=== PATIENT | male | born 1950 | race Caucasian/White ===

== ENCOUNTER 2018-07-11 20:59 | Emergency (ER) | payer MEDICARE, OTHER ==
[~2018-07-11] VITALS: Ht 170.2 cm; Wt 72.6 kg
[~2018-07-11 20:59] MED LIST: ASCO500T3 PO; ASPI-612 PO; ATOR20TA PO; CETI10CA PO; CHOL100013 PO; DUTA0.5C PO; ESOM40CA PO; FERR325T14 PO; FLAX1000 PO; LOSA-73 PO; WARF-78 PO; [UNRECOGNIZED DRUG - OTHER] PO
[2018-07-11 21:49] LABS: BASO % 1 % (0-3); EOS # 0.1 x10^3/uL (0.0-0.7); EOS % 1 % (0-3); HEMATOCRIT 41.1 % (39.0-53.0); HEMOGLOBIN 14.1 g/dL (13.0-17.5); LYMPH # 2.2 x10^3/uL (1.0-4.8); LYMPH % 35 % (24-48); MEAN CORPUSCULAR HEMOGLOBIN 31 pg (25-35); MEAN CORPUSCULAR HGB CONC 34 g/dL (31-37); MEAN CORPUSCULAR VOLUME 91 fL (79-100); MONO # 0.4 x10^3/uL (0.0-1.1); MONO % 7 % (0-9); NEUT # 3.5 x10^3uL (1.8-7.7); NEUT % 56 % (31-73); PLATELET COUNT 153 x10^3/uL (140-400); RED CELL DISTRIBUTION WIDTH 12.3 % (11.5-14.5); WHITE BLOOD COUNT 6.3 x10^3/uL (4.0-11.0)
[2018-07-11 21:59] LABS: CALCIUM 9.3 mg/dL (8.5-10.1); POTASSIUM 3.7 mmol/L (3.5-5.1)
[2018-07-11 22:05] LABS: ALBUMIN 3.7 g/dL (3.4-5.0); ALBUMIN/GLOBULIN RATIO 1.2 (1.0-1.7); TOTAL BILIRUBIN 0.7 mg/dL (0.2-1.0); TOTAL PROTEIN 6.9 g/dL (6.4-8.2)
[2018-07-11 22:39] VITALS: BP 131/79
--- NOTE | 2018-07-11 22:39 | PHYS DOC ---
Past Medical History Past Medical History: Hypertension, Other Additional Past Medical Histor: enlarged prostate (DAVID LYNCH APRN) Past Surgical History: Knee Replacement, Tonsillectomy, Other Additional Past Surgical Histo: back surgery, nose surgery (DAVID LYNCH APRN) Alcohol Use: None Drug Use: None (DAVID LYNCH APRN) Adult General Chief Complaint Chief Complaint: CHEST PAIN HPI HPI 67-year-old male presents to ER via POV for complaints of intermittent left- sided chest pains which started around noon while working in his yard. Pt reports episode was brief- denying radiation of pain, shortness of air, or nausea and vomiting. Patient states he had a couple more episodes of brief intermittent chest pain earlier and is currently denying any pain. She reports he took 81 mg aspirin today. Patient states he has had a recent stress tests uncertain of date which was normal limits. Patient has history of hypertension and kidney disease. Patient denies smoking or alcohol history. Patient denies any recent travel. Patient denies any recent illness. Patient states his father had [place] in his 70s but he had other medical issues putting him at higher risk. Patient reports he was seen [place] and TINs unit was used with higher setting- uncertain if that may have caused some increased muscle cramps. He denies any recent trauma/falls. (DAVID LYNCH APRN) Review of Systems Review of Systems Constitutional: Denies fever or chills [] Eyes: Denies change in visual acuity, redness, or eye pain [] HENT: Denies nasal congestion or sore throat [] Respiratory: Denies cough or shortness of breath [] Cardiovascular: Reports intermittent brief episodes of lt side CP- denies pain currently GI: Denies abdominal pain, nausea, vomiting, bloody stools or diarrhea [] : Denies dysuria or hematuria [] Musculoskeletal: Denies joint pain. Denies chronic back pain- denies acute changes. Integument: Denies rash, swelling or skin lesions [] Neurologic: Denies headache, focal weakness or sensory changes. Denies dizziness All other systems were reviewed and found to be within normal limits, except as documented in this note. (DAVID LYNCH APRN) Allergies Allergies Allergies Coded Allergies Type Severity Reaction Last Updated Verified amoxicillin Allergy Intermediate Rash 07/11/18 Yes amoxicillin trihydrate Allergy Intermediate Rash 07/11/18 Yes morphine Allergy Intermediate Itching 02/01/13 Yes potassium clavulanate Allergy Intermediate Rash 07/11/18 Yes (ANDREA MICHAEL MD) Physical Exam Physical Exam Constitutional: Well developed, well nourished, no acute distress, non-toxic appearance. [] HENT: Normocephalic, atraumatic, oropharynx moist, nose normal. [] Eyes: Pupils equal, conjunctiva normal, no discharge. [] Neck: Normal range of motion, no tenderness, supple, no stridor. [] Cardiovascular: Heart rate regular rhythm, no murmur [] Lungs & Thorax: Bilateral breath sounds clear to auscultation- resp. equal/nonlabored. No chest wall tenderness Abdomen: Bowel sounds normal, soft, no tenderness, no masses, no pulsatile masses. [] Skin: Warm, dry, no erythema, no rash. [] Back: No tenderness, no CVA tenderness. [] Extremities: No tenderness, no cyanosis, no clubbing, ROM intact, no edema. [] Neurologic: Alert and oriented X 3, normal motor function, normal sensory function, no focal deficits noted. [] Psychologic: Affect normal, judgement normal, mood normal. [] (REFFITT,DAVID Vergara APRN) Current Patient Data Vital Signs Vital Signs Date Time Temp Pulse Resp B/P (MAP) Pulse Ox O2 Delivery O2 Flow Rate FiO2 07/11/18 22:39 66 18 131/79 (96) 95 Room Air 07/11/18 21:00 98.3 98.3 (ANDREA MICHAEL MD) Lab Values Laboratory Tests Test 07/11/18 21:10 White Blood Count 6.3 x10^3/uL (4.0-11.0) Red Blood Count 4.50 x10^6/uL (4.30-5.70) Hemoglobin 14.1 g/dL (13.0-17.5) Hematocrit 41.1 % (39.0-53.0) Mean Corpuscular Volume 91 fL (79-100) Mean Corpuscular Hemoglobin 31 pg (25-35) Mean Corpuscular Hemoglobin Concent 34 g/dL (31-37) Red Cell Distribution Width 12.3 % (11.5-14.5) Platelet Count 153 x10^3/uL (140-400) Neutrophils (%) (Auto) 56 % (31-73) Lymphocytes (%) (Auto) 35 % (24-48) Monocytes (%) (Auto) 7 % (0-9) Eosinophils (%) (Auto) 1 % (0-3) Basophils (%) (Auto) 1 % (0-3) Neutrophils # (Auto) 3.5 x10^3uL (1.8-7.7) Lymphocytes # (Auto) 2.2 x10^3/uL (1.0-4.8) Monocytes # (Auto) 0.4 x10^3/uL (0.0-1.1) Eosinophils # (Auto) 0.1 x10^3/uL (0.0-0.7) Basophils # (Auto) 0.0 x10^3/uL (0.0-0.2) Sodium Level 145 mmol/L (136-145) Potassium Level 3.7 mmol/L (3.5-5.1) Chloride Level 106 mmol/L (98-107) Carbon Dioxide Level 32 mmol/L (21-32) Anion Gap 7 (6-14) Blood Urea Nitrogen 17 mg/dL (8-26) Creatinine 1.0 mg/dL (0.7-1.3) Estimated GFR (Cockcroft-Gault) 75.0 BUN/Creatinine Ratio 17 (6-20) Glucose Level 109 mg/dL (70-99) H Calcium Level 9.3 mg/dL (8.5-10.1) Magnesium Level 2.0 mg/dL (1.8-2.4) Total Bilirubin 0.7 mg/dL (0.2-1.0) Aspartate Amino Transferase (AST) 26 U/L (15-37) Alanine Aminotransferase (ALT) 40 U/L (16-63) Alkaline Phosphatase 68 U/L (46-116) Troponin I Quantitative < 0.017 ng/mL (0.000-0.055) Total Protein 6.9 g/dL (6.4-8.2) Albumin 3.7 g/dL (3.4-5.0) Albumin/Globulin Ratio 1.2 (1.0-1.7) Laboratory Tests 07/11/18 21:10 Laboratory Tests 07/11/18 21:10 (ANDREA MICHAEL MD) EKG EKG EKG obtained 07/11/18 at [address] Michael Sinus rhythm Rate 70 No STEMI (DAVID LYNCH APRN) Radiology/Procedures Radiology/Procedures PROCEDURE: CHEST PA & LATERAL PA and lateral chest radiographs 07/11/2018 CLINICAL HISTORY: Intermittent left-sided chest pain. PA and lateral digital radiographs of the chest were obtained. Comparison study is dated 01/08/2013. The cardiac silhouette is normal in size. The thoracic aorta is mildly tortuous. No acute pulmonary infiltrate is seen. No pleural effusion or pneumothorax is noted. Degenerative changes are seen involving the thoracic spine. IMPRESSION: No acute abnormality is seen. Electronically signed by: Solomon Palmer MD (07/11/2018 11:36 PM) [facility] DICTATED and SIGNED BY: SOLOMON PALMER MD DATE: 07/11/18 2331 (DAVID LYNCH APRN) Course & Med Decision Making Course & Med Decision Making Pertinent Labs and Imaging studies reviewed. (See chart for details) 2024: Reevaluation of the patient and he is denying having any chest pain while in the ER. Test results were discussed. EKG with no acute ST elevation or STEMI and troponin was negative. Chest x-ray was negative for acute findings. Admission was offered for further monitoring with HEART score 3- with pt having no pain and with NL tests he is preferring to be discharge with plans to f/u with PCP for re-eval. and further care if sxs persist. Pt had reported NL stress test recently and that pain had started at noon with 2-3 brief episodes of intermittent CP earlier in the day. Pt has denied any CP/SOA or complaints while in the ER. Education provided on signs and symptoms to return to ER. Discharge instructions were discussed. Patient to follow-up with primary care physician if symptoms persist or with any concerns. (DAVID LYNCH APRN) Course & Med Decision Making Staff Physician Addendum: I was working in the ER during the course of this patient's visit. I was available for consultation as needed, but I was not directly involved in the care of this patient. (ANDREA MICHAEL MD) Dragon Disclaimer Dragon Disclaimer This electronic medical record was generated, in whole or in part, using a voice recognition dictation system. (DAVID LYNCH APRN) Departure Departure Impression: Primary Impression: Chest pain Disposition: HOME, SELF-CARE Condition: STABLE Referrals: UNKNOWN PCP NAME (PCP) Patient Instructions: Chest Pain (Nonspecific) Additional Instructions: Drink plenty of fluids. In symptoms persist follow-up with your primary care physician for reevaluation. With any concerns or worsening symptoms return to the emergency department. DAVID LYNCH APRN July 11, 2018 22:39 ANDREA MICHAEL MD Aug 06, 2018 10:13
--- NOTE | 2018-07-11 23:39 | RAD ---
PA and lateral chest radiographs 07/11/2018 CLINICAL HISTORY: Intermittent left-sided chest pain. PA and lateral digital radiographs of the chest were obtained. Comparison study is dated 01/08/2013. The cardiac silhouette is normal in size. The thoracic aorta is mildly tortuous. No acute pulmonary infiltrate is seen. No pleural effusion or pneumothorax is noted. Degenerative changes are seen involving the thoracic spine. IMPRESSION: No acute abnormality is seen. Electronically signed by: Solomon Palmer MD (07/11/2018 11:36 PM) [facility]
--- NOTE | 2018-07-12 06:32 | EKG ---
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
== END 2018-07-11 22:53 | disposition home or self-care (01) ==
LOC: ER 20:59
DX: R07.89 Other chest pain (principal); I10 Essential (primary) hypertension; Z88.1 Allergy status to other antibiotic agents; Z88.5 Allergy status to narcotic agent; Z88.8 Allergy status to other drugs, medicaments and biological substances
CPT/HCPCS: 36415; 71046; 80053; 83735; 84484; 85025; 93005; 99285-25

== ENCOUNTER → 2018-12-21 | Day surgery (SDC) | payer MEDICARE, OTHER ==
[~2018-12-21] MED LIST changes: +AMLO5TAB10 PO; +ASPI-630 PO; +IV RINGERS,LACTATED 1000ML 1,000 ML IV ONE; +LEVO50TA5 PO; +MAGN400C PO; +PROPOFOL 20 ML IV ONE; +TURM500C4 PO
[2018-12-21 14:08] VITALS: BP 125/84
--- NOTE | 2018-12-22 14:06 | PATHOLOGY ---
[facility] Accession Number: [id number] . 01 Material submitted: . colon - SIGMOID COLON POLYP. Modifiers: sigmoid . 01 Clinical history: . Rectal bleed, abdominal pain . 02 Diagnosis: Colon biopsy, sigmoid colon polyp: - Tubular adenoma. (JPM:grisel; 12/22/2018) QMS 12/22/2018 0841 Local . 02 Comment: There is no high grade dysplasia or evidence of malignancy. . 02 Electronically signed: . Chris Gifford MD, Pathologist NPI- [id number] . 01 Gross description: . Received in formalin labeled "Dilip, Juan, sigmoid colon polyp," is a 0.7 x 0.6 x 0.5 cm polypoid piece of archibald soft tissue. The margin is inked and the tissue is sectioned perpendicular to the margin and submitted entirely in cassette A1. (TSD; 12/21/2018) TOB/TOB 12/21/2018 1755 Local . 02 Pathologist provided ICD-10: D12.5 . 02 CPT . 019870 Specimen Comment: A courtesy copy of this report has been sent to Specimen Comment: [phone]. Specimen Comment: Report sent to Performed at: 01 [facility] [address], [place], [place] [id number] MD Michele Phelps MD Phone: [phone] Performed at: 02 [facility] [address] [place], [place] [id number] MD Chris Gifford MD Phone: [phone]
== END ==
LOC: ENDOS 11:31
PROVIDERS: ATTEND Internal Medicine Gastroenterology
DX: K92.1 Melena (principal); K29.50 Unspecified chronic gastritis without bleeding; D12.5 Benign neoplasm of sigmoid colon; K21.9 Gastro-esophageal reflux disease without esophagitis; K64.0 First degree hemorrhoids; I10 Essential (primary) hypertension; E78.00 Pure hypercholesterolemia, unspecified; F15.90 Other stimulant use, unspecified, uncomplicated; Z88.0 Allergy status to penicillin; Z88.8 Allergy status to other drugs, medicaments and biological substances; Z87.39 Personal history of other diseases of the musculoskeletal system and connective tissue; Z85.828 Personal history of other malignant neoplasm of skin
CPT/HCPCS: 43235; 45385; 88305; J2704; 45380

== ENCOUNTER → 2018-12-27 | Outpatient (CLI) | payer MEDICARE, OTHER ==
[2018-12-21 14:08] VITALS: BP 125/84
[~2018-12-27] MED LIST changes: +CONTRAST GIVEN. MC PRN; +IOHEXOL 240 MG/ML 50ML VIAL. PO ONE; +IOHEXOL 300 MG/ML 100ML VIAL. IV ONE; -IV RINGERS,LACTATED 1000ML 1,000 ML IV ONE; -PROPOFOL 20 ML IV ONE
--- NOTE | 2018-12-28 08:47 | RAD ---
CT ABD PELV W/ORAL IV CONTRAST Indication: Rectal bleeding, epigastric pain for 8 weeks Technique: Postcontrast CT imaging was performed of the abdomen pelvis, multiplanar reconstruction images submitted. Oral contrast was also given. One or more of the following individualized dose reduction techniques were utilized for this examination: 1. Automated exposure control 2. Adjustment of the mA and/or kV according to patient size 3. Use of iterative reconstruction technique. Comparison: None Findings: There is emphysema of the visualized lung bases. Small left lower lobe nodule near the base about 0.6 cm is difficult to exclude image 12 series 2 although there is adjacent likely fibrotic change also present. There is small right lower lobe pulmonary nodule about 0.4 cm image 11 series 2. There are several hypodense foci of the liver, largest near the dome of the right about 3.3 cm with density characteristics of a cyst, other, smaller foci difficult to accurately characterize. No focal abnormality is identified of the pancreas or spleen. There is no significant adrenal nodularity. Both kidneys enhance, no hydronephrosis. There is a small 0.5 cm hypodense lesion of the mid right kidney too small to accurately characterize. Bowel is not significantly dilated. There is no free fluid or free air. There is duodenal diverticulum arising from the transverse duodenum projecting superiorly about 4.2 cm transverse. There is greater degree of retained stool in the rectum and right colon. There is a nodular appearance of the prostate gland indenting the base of urinary bladder, measures about 4.7 cm AP by 5.2 cm transverse by about 5.6 cm CC. There is some fat in the left inguinal canal, no bowel. Normal appendix is visualized. There is multilevel degenerative disc disease greatest L4-5 and L5-S1. There are foci of nonspecific sclerosis of the bilateral ischium, greatest on the left about 1.4 cm, also small focus of the proximal left femoral shaft. IMPRESSION: 1. No significant acute abnormality is identified. There is variable retained stool in the colon. Given history, colon screening is advised if not already performed. 2. There is a nodular appearance of the prostate gland indenting the base of urinary bladder, prostate cancer screening advised if not already performed. 3. There are hypodense foci of the liver, largest focus near the dome with characteristics of a cyst, other smaller foci too small to accurately characterize. 4. There are small foci of nodularity near the visualized lung bases. If increased risk factors for neoplasm, dedicated chest CT to further evaluate the lungs may be indicated. Regarding the visualized nodules, optional 12 month follow-up could be performed as per revised Fleischner guidelines if increased risk factors for neoplasm, no additional follow-up needed if low risk factors. 5. There are foci of nonspecific sclerosis of the bilateral ischium greater on the left. If there is clinical suspicion for bone metastases, bone scan could be indicated. 6. There is duodenal diverticulum. Electronically signed by: Kamron Saavedra MD (12/28/2018 8:44 AM) [facility]
== END | disposition home or self-care (01) ==
LOC: CT 14:44
PROVIDERS: ATTEND Internal Medicine Gastroenterology
DX: J43.9 Emphysema, unspecified (principal); K57.10 Diverticulosis of small intestine without perforation or abscess without bleeding; M51.37 Other intervertebral disc degeneration, lumbosacral region; R91.8 Other nonspecific abnormal finding of lung field; K62.5 Hemorrhage of anus and rectum; I10 Essential (primary) hypertension; Z90.89 Acquired absence of other organs; Z90.49 Acquired absence of other specified parts of digestive tract
CPT/HCPCS: 74177; Q9966; Q9967

== ENCOUNTER → 2020-10-03 | Outpatient (CLI) | payer MEDICARE, OTHER ==
[2018-12-21 14:08] VITALS: BP 125/84
[~2020-10-03] MED LIST changes: +AMLO-186 PO; -AMLO5TAB10 PO; -ASPI-612 PO; +ASPI-886 PO; -CONTRAST GIVEN. MC PRN; -IOHEXOL 240 MG/ML 50ML VIAL. PO ONE; -IOHEXOL 300 MG/ML 100ML VIAL. IV ONE; -WARF-78 PO; +WARF5TAB2 PO
--- NOTE | 2020-10-03 10:24 | KCIC ---
EXAM: DUAL ENERGY X-RAY ABSORPTIOMETRY (DEXA). HISTORY: 70-year-old male with long-term medication use. Osteoporosis screening. FINDINGS: The lowest measured T-score is 0.7 in the left hip, based on a bone mineral density of 1.14 0 g/cm^2. Refer to the worksheets for full detail. No comparison examinations are available. IMPRESSION: 1. Normal. Bone mineral density yields a T-score of -1.0 or greater. Fracture risk is low. 2. FRAX report: Not calculated. METHODOLOGY: Dual energy x-ray absorptiometry was performed to measure bone mineral density. The foll owing analysis is based on the 2019 Official Positions of the International Society for Clinical Dens itometry: Measurements of the hips and the average of L1-L4 are preferred. When the spine and/or hip cannot be feasibly measured or interpreted, or in the setting of hyperparathyroidism, distal radial bone minera l density may be measured. The lumbar spine T-score is based on the average bone mineral density of L1-L4. In the setting of art ifact or anatomic abnormality, some lumbar levels may be excluded, and the remaining levels used for calculation. A single lumbar level is not used for diagnosis, and if only a single level is available for assessment, another anatomic site will be used to assign a diagnosis. The hip T-score is based on the bone mineral density measurement of the femoral neck or total proxima l femur of either side, whichever is lowest. Bilateral mean values are not used for diagnosis. The forearm T-score is derived from 33% of the distal radius of the nondominant forearm. Electronically signed by: Ericka Villalobos MD (10/03/2020 10:22 AM) [id number]
== END ==
LOC: KCIC DEXA 09:57
PROVIDERS: ATTEND Family Medicine
DX: M81.0 Age-related osteoporosis without current pathological fracture (principal); Z13.820 Encounter for screening for osteoporosis; Z79.899 Other long term (current) drug therapy
CPT/HCPCS: 77080

== ENCOUNTER 2021-03-19 07:32 | Day surgery (SDC) | payer MEDICARE, OTHER ==
[~2021-03-19] VITALS: Ht 170.2 cm; Wt 73.1 kg
[~2021-03-19 07:32] MED LIST changes: +ACETAMINOPHEN 500 MG TABLET PO PRN; +IV RINGERS,LACTATED 1000ML 1,000 ML IV SCH; +PROCHLORPERAZINE 10 MG/2 ML VIAL. IVP PRN; +fentaNYL PF VIAL 100 MCG/2 ML VIAL IVP PRN
[2021-03-19 08:01] VITALS: BP 137/81
[2021-03-19] MEDS ORDERED: OMEP20TA63 PO (08:08)
--- NOTE | 2021-03-19 09:01 | PDOC1 ---
History and Physical Date of Admission Date of Admission DATE: 03/19/21 TIME: 08:57 Identification/Chief Complaint Chief Complaint Painful bulge left groin Source Source: Chart review, Patient History of Present Illness History of Present Illness 70-year-old male with complaints of a painful bulge in his left groin urologist told him he had a hernia. Been present for several months he also has some pain in the right groin but no evidence of a hernia Past Medical History Cardiovascular: HTN Pulmonary: No pertinent hx GI: GERD Heme/Onc: No pertinent hx Hepatobiliary: No pertinent hx Psych: No pertinent hx Rheumatologic: No pertinent hx Infectious disease: No pertinent hx ENT: No pertinent hx Renal/: Benign prostatic enlarg. Endocrine: No pertinent hx Dermatology: No pertinent hx Past Surgical History Past Surgical History: Cholecystectomy, Total knee replacement, Other (Vein stripping and neck surgery) Family History Family History: No Significant Social History Smoke: No ALCOHOL: rare Drugs: None Current Medications Current Medications Current Medications Fentanyl Citrate (Fentanyl 2ml Vial) 25 mcg PRN Q5MIN PRN IVP MILD PAIN 1-3; Start 03/19/21 at 06:00; Stop 03/19/21 at 20:00 Fentanyl Citrate (Fentanyl 2ml Vial) 50 mcg PRN Q5MIN PRN IVP MODERATE PAIN 4- 6; Start 03/19/21 at 06:00; Stop 03/19/21 at 20:00 Ringer's Solution 1,000 ml @ 30 mls/hr Q24H IV Last administered on 03/19/21at 08:12; Start 03/19/21 at 06:00; Stop 03/19/21 at 17:59 Prochlorperazine Edisylate (Compazine) 5 mg PACU PRN PRN IVP NAUSEA, MRX1; Start 03/19/21 at 06:00; Stop 03/19/21 at 20:00 Acetaminophen (Tylenol) 1,000 mg 1X PREOP PRN PO PRIOR TO PROCEDURE Last administered on 03/19/21at 08:13; Start 03/19/21 at 06:00; Stop 03/19/21 at 18:00 Levofloxacin/ Dextrose 100 ml @ 100 mls/hr 1X PREOP PRN IV PRIOR TO PROCEDURE; Start 03/19/21 at 06:00; Stop 03/19/21 at 18:00 Active Scripts Active Reported Prilosec Otc (Omeprazole Magnesium) 20 Mg Tablet.dr 1 Tab PO DAILY 30 Days Turmeric 500 mg Capsule (Turmeric/Turmeric Root Extract) 1 Each Capsule 1 Each PO DAILY Magnesium (Magnesium Oxide) 400 Mg Capsule 400 Mg PO DAILY Amlodipine Besylate 5 Mg Tablet 5 Mg PO DAILY Levothyroxine Sodium 50 Mcg Tablet 50 Mcg PO DAILYAC [nature code vitamin] 1 Packet PO DAILY Vitamin D (Cholecalciferol (Vitamin D3)) 1,000 Unit Capsule 1,000 Unit PO DAILY Avodart (Dutasteride) 0.5 Mg Capsule 0.5 Mg PO DAILY Zyrtec (Cetirizine Hcl) 10 Mg Capsule 10 Mg PO DAILY Lipitor (Atorvastatin Calcium) 20 Mg Tablet 20 Mg PO HS Aspirin Ec (Aspirin) 81 Mg Tablet.dr 81 Mg PO DAILY Ascorbic Acid 500 Mg Tablet 500 Mg PO DAILY Allergies Allergies: Coded Allergies: amoxicillin (Verified Allergy, Intermediate, Rash, 12/21/18) amoxicillin trihydrate (Verified Allergy, Intermediate, Rash, 12/21/18) benzonatate (Verified Allergy, Intermediate, 12/21/18) morphine (Verified Allergy, Intermediate, Itching, 02/01/13) pantoprazole (Verified Allergy, Intermediate, 12/21/18) potassium clavulanate (Verified Allergy, Intermediate, Rash, 12/21/18) pseudoephedrine (Verified Allergy, Intermediate, 12/21/18) ROS Genitourinary: YES Other (Left groin pain) Physical Exam General: Alert, Oriented X3, Cooperative, No acute distress HEENT: Atraumatic, EOMI Lungs: Clear to auscultation, Normal air movement Heart: RRR, no murmurs Abdomen: Normal bowel sounds, Soft, No tenderness Male Genitals Exam: other (Left groin tenderness palpable hernia) Rectal Exam: not examined Extremities: No edema Skin: No significant lesion Neuro: Normal speech Psych/Mental Status: Mental status NL Vitals Vitals Vital Signs Date Time Temp Pulse Resp B/P (MAP) Pulse Ox O2 Delivery O2 Flow Rate FiO2 03/19/21 08:04 97.6 73 18 137/81 98 Room Air 97.6 VTE Prophylaxis Ordered VTE Prophylaxis Devices: Yes VTE Pharmacological Prophylaxi: Contraindicated Assessment/Plan Assessment/Plan Left inguinal hernia plan robotic assisted laparoscopic repair possible right inguinal hernia Justifications for Admission Other Justification MIKE BALDWIN MD 20, 2022 09:01
[2021-03-19] MEDS ORDERED: BUPIVACAINE-EPI 0.25%-1:200000 MPF 30 ML VIAL. INJ ONE (09:59)
[2021-03-19] MEDS ORDERED: MINERAL OIL for SURGERY 10 ML VIAL. MC ONE (09:59)
[2021-03-19] MEDS ORDERED: SUGAMMADEX SODIUM 200 MG/2 ML VIAL. IVP ONE (10:15)
--- NOTE | 2021-03-19 10:38 | PDOC4 ---
Operative Note Operative Note Date: March 19, 2021 at 10:35 AM Preoperative diagnosis: A left inguinal hernia Postoperative diagnosis: Same Procedure: Robotic assisted laparoscopic left inguinal hernia repair with mesh Surgeon: Alfonzo Specimen: None Dictation: Patient is 70-year-old male with complaints of a painful bulge in his left groin. Procedure of robotic assisted laparoscopic left inguinal hernia repair with mesh was explained to the patient detail risk benefits were also discussed including bleeding infection injury to intra-abdominal contents possible necessitating further open operations alternatives to this procedure also discussed with the patient he seemed understand and gave a verbal written consent to have seizure performed. Patient was taken to the operating room placed in supine position general anesthesia was initiated once patient was sleeping in bed placed in the lithotomy position and his abdomen was prepped and draped usual sterile fashion using ChloraPrep. Area above the umbilicus was injected with quarter percent Marcaine with epinephrine incision was made with a blade scalpel and a varies needle was placed within the abdomen creating pneumoperitoneum once this was complete a 8 mm da Etta port was placed with a millimeter da Etta camera placed within the abdomen which was inspected as noted there is an hernia on the left side right side appeared to be normal. A 8 mm ventral port was placed in the right midabdomen and 8 mm da Etta ports placed in left midabdomen all under direct visualization the placement was placed in some Trendelenburg positioning and the robot was brought and docked all port sites surgeon went to the robotic console using a grasper and Endo Ilsa scissors the peritoneum on the left side was incised and a window propagated posteriorly reducing the hernia sac and contents. Large 3D max mesh for the left side was placed over the hernia defect and the peritoneum was closed with a running 2 OV lock absorbable suture. Once this was complete sutures removed from the abdomen the da Etta robot was undocked from all port sites and removed the ports were all removed the port sites were all closed with 4 subicular Monocryl Mastisol Steri-Strips and island dressings were applied. Patient was awakened and extubated in the operating room taken to recovery in stable condition all sponge instrument needle counts listed as correct estimated blood loss 5 mL. MIKE BALDWIN MD Mar 19, 2021 10:38
[2021-03-19] MEDS ORDERED: OXYC-325 PO (10:40)
--- NOTE | 2021-03-19 10:41 | DISCH ---
DISCHARGE INSTRUCTIONS Condition on Discharge Condition on Discharge: Stable Activity After Discharge Activity Instructions for Disc: Avoid exertion Other activity instructions: No lifting more than 20 pounds for 2-week Diet after Discharge Diet after Discharge: Regular Wound Incision Care Other wound/incision instructi: May shower in 24 hours Contacting the after DC Call your doctor for: If your condition worsens Follow-Up Follow up with: Dr. Baldwin in 2 weeks MIKE BALDWIN MD Mar 19, 2021 10:41
[2021-03-19] MEDS: fentaNYL PF VIAL 100 MCG/2 ML VIAL IVP PRN ×2 (10:52→10:59)
[2021-03-19] MEDS ORDERED: oxyCODONE/APAP 5/325 1 TAB TABLET PO ONE (11:15)
[2021-03-19 11:18] VITALS: BP 146/79
== END 2021-03-19 11:45 | disposition home or self-care (01) ==
LOC: SURG 07:32
PROVIDERS: ATTEND Surgery
DX: K40.90 Unilateral inguinal hernia, without obstruction or gangrene, not specified as recurrent (principal); I10 Essential (primary) hypertension; E78.00 Pure hypercholesterolemia, unspecified; M19.90 Unspecified osteoarthritis, unspecified site; N40.0 Benign prostatic hyperplasia without lower urinary tract symptoms; Z79.899 Other long term (current) drug therapy; Z98.890 Other specified postprocedural states; Z96.653 Presence of artificial knee joint, bilateral; Z90.49 Acquired absence of other specified parts of digestive tract; Z20.828 Contact with and (suspected) exposure to other viral communicable diseases; Z88.0 Allergy status to penicillin
CPT/HCPCS: 49650; A4364; A4930; A6219; C1781; J3490; A4657